=== PATIENT | female | born 1950 | race Caucasian/White ===

== ENCOUNTER 2018-09-15 12:26 | Emergency (ER) | payer OTHER, SELFPAY ==
[2018-09-15 12:38] VITALS: BP 155/86; PULSE 82; RESP 14; TEMP 36.7; O2SAT 98; BMI 28.9
--- NOTE | 2018-09-15 12:58 | DI.US.S_ITS ---
PROCEDURE: US PERIPH VENOUS LOW EXTREM LT INDICATIONS: LEFT CALF PAIN TECHNIQUE: Real-time imaging, as well as color and pulse Doppler interrogation, were performed of the lower extremity deep veins from the inguinal ligament to the popliteal fossa. COMPARISON: None. FINDINGS: The deep veins are normally compressible, and free of intraluminal thrombus. Color and pulse Doppler demonstrate normal phasic intraluminal flow. There is normal augmentation response to distal compression maneuver. IMPRESSION: No DVT in the left lower extremity. Dictated by: Christine Jacques M.D. on 09/15/2018 at 15:05 Approved by: Christine Jacques M.D. on 09/15/2018 at 15:06
[2018-09-15 14:13] VITALS: PULSE 70
--- NOTE | 2018-09-15 14:43 | ED.EXTPRO ---
HPI - Extremity Problem General Chief complaint: Extremity Problem,Nontraumatic Stated complaint: POSSIBLE BLOOD CLOT LEFT CALF Time Seen by Provider: 09/15/18 14:23 Source: patient Mode of arrival: ambulatory Limitations: no limitations History of Present Illness HPI Narrative: 67-year-old female here for evaluation of left posterior knee pain. She states it has been going on for the past several days/weeks. No trauma. States she gets cramping behind her knee and in her upper calf. No shortness of breath or chest pain. She was concerned about a blood clot. No skin changes. Related Data Allergies Allergy/AdvReac Type Severity Reaction Status Date / Time No Known Drug Allergies Allergy Verified 09/15/18 12:41 Review of Systems Constitutional Denies fever(s) Cardiovascular Denies chest pain and Denies dyspnea Respiratory Denies dyspnea Musculoskeletal Reports myalgias (Left upper calf), Denies deformity, Reports arthralgias (Left posterior knee), Denies joint swelling and Denies tingling Integumentary/Breasts Denies lesions and Denies rash Neurologic Denies focal weakness, Denies tingling and Denies paresthesias Hematologic/Lymphatic Denies easy bleeding and Denies easy bruising PFSH Medical History Healthy adult (Acute) Surgical History No pertinent past surgical history (Acute) Social History Smoking Status: Former smoker Exam Initial Vital Signs Initial Vital Signs: Vital Signs Temperature 98.1 F 09/15/18 12:38 Pulse Rate 82 09/15/18 12:38 Respiratory Rate 14 09/15/18 12:38 Blood Pressure 155/86 H 09/15/18 12:38 Pulse Oximetry 98 09/15/18 12:38 Const General: cooperative, healthy appearing, comfortable, well developed, well groomed and No acute distress Orientation: awake and oriented x3 Resp Effort & Inspection: normal respiratory effort Skin Lesions: no lesions Rashes: no rashes Neuro Sensory Exam: no sensory deficits noted Extrem Left lower extremity: normal to inspection, full ROM and knee Details: normal to inspection and normal ROM; no tenderness, no swelling and no unusual warmth; no cyanosis, no edema and joint enlargement noted Psych Appearance: grossly normal and well kempt Course Orders Ordered: ED Orders 09/15/18 12:58 US periph venous low extrem lt Stat Vital Signs - 8 hr 09/15/18 12:38 09/15/18 14:13 Temperature 98.1 F Pulse Rate 82 Pulse Rate [Left Dorsalis Pedis] 70 Respiratory Rate 14 Blood Pressure 155/86 H Pulse Oximetry 98 MDM - Extremity (Nontraumatic) Imaging Data Venous US: Radiologist's impression: PROCEDURE: US PERIPH VENOUS LOW EXTREM LT INDICATIONS: LEFT CALF PAIN TECHNIQUE: Real-time imaging, as well as color and pulse Doppler interrogation, were performed of the lower extremity deep veins from the inguinal ligament to the popliteal fossa. COMPARISON: None. FINDINGS: The deep veins are normally compressible, and free of intraluminal thrombus. Color and pulse Doppler demonstrate normal phasic intraluminal flow. There is normal augmentation response to distal compression maneuver. IMPRESSION: No DVT in the left lower extremity. Dictated by: Christine Jacques M.D. on 09/15/2018 at 15:05 Approved by: Christine Jacques M.D. on 09/15/2018 at 15:[address] [facility] Narrative Medical decision making narrative: No DVT noted on the lower extremity ultrasound. She is neurovascularly intact. No trauma. Will hold on x-rays. Doubt fracture. Discussed elevation and icing and anti-inflammatories. Informed her she did contact her primary care doctor for follow-up. She was given return precautions. She expressed understanding and agreement plan. Discharge Plan Departure Patient Disposition: Home Clinical Impression: Left knee pain Discharge Date/Time: 09/15/18 15:17 Interventions: ED Discharge Assessment Last Done: 09/15/18 15:16 Instructions: How To Perform RICE (Rest, Ice, Compress, Elevate) Activity Restrictions/Additional Instructions: recommend that you keep your knee elevated as much as possible you can do anti-inflammatories such as Motrin / Naprosyn. You can use compression stockings if you wish. Return to the emergency department for any new or worsening symptoms
== END 2018-09-15 15:17 | disposition home or self-care (01) ==
PROVIDERS: Emergency Provider Emergency Medicine; PCP Family Medicine
DX: M25.562 Pain in left knee (principal)
CPT/HCPCS: 93971; 99282; 99283

== ENCOUNTER → 2019-08-11 13:01 | Outpatient (CLI) | payer OTHER, SELFPAY ==
--- NOTE | 2019-08-11 | DI.US.S_ITS ---
PROCEDURE: US ABDOMEN COMPLETE INDICATIONS: RUQ PAIN TECHNIQUE: Real-time scanning was performed of the abdominal and retroperitoneal organs, with image documentation. COMPARISON: None. FINDINGS: Liver: Liver is normal in size and homogeneous in echotexture. Gallbladder: There are a few tiny echogenic foci within the gallbladder neck without visible vascularity. Biliary ducts: Intrahepatic bile ducts are non-dilated. Extrahepatic bile duct caliber measures 8 mm. No visible choledocholithiasis. Normal is 67 mm or less in diameter, or 10 mm or less post-cholecystectomy. Pancreas: Visualized portions of the pancreas are sonographically normal. Spleen: Spleen is normal in size and homogeneous in echotexture with a few scattered calcified splenic granulomas. Kidneys: Kidneys are normal in size and echotexture. Right kidney measures 8.9 cm long; left kidney measures 9.0 cm long. Mild renal cortical thinning on the right with renal cortex measuring 0.8 cm in thickness. No hydronephrosis or nephrolithiasis. No solid masses. Aorta: Visualized aorta is normal in caliber at less than 3 cm. Iliacs: Proximal common iliac arteries are normal in caliber at less than 2.5 cm. IVC: Intrahepatic inferior vena cava is patent. Miscellaneous: No free abdominal fluid. IMPRESSION: 1. A few tiny echogenic foci within the gallbladder neck without visible vascularity. Findings may represent small nonmobile gallstones versus small polyps. No wall thickening or pericholecystic fluid. There is minimal biliary ductal prominence without evidence for choledocholithiasis. Consider correlation with liver function tests for possible obstruction. If abnormal, further evaluation with MRCP, ERCP or endoscopic ultrasound can be considered at that time. 2. Mild right renal cortical thinning possibly related to sequela of chronic medical renal disease. Dictated by: Fredrick Mars M.D. on 08/11/2019 at 17:19 Approved by: Fredrick Mars M.D. on 08/11/2019 at 17:29
== END ==
PROVIDERS: PCP Family Medicine; Visit Provider Family Medicine
DX: R10.11 Right upper quadrant pain (principal)
CPT/HCPCS: 76700

== ENCOUNTER → 2021-05-02 08:45 | Outpatient (CLI) | payer MEDICARE, SELFPAY ==
[2021-05-02 19:13] LABS: Add Manual Diff / Slide Review NO; Basophils Absolute Auto 0 /uL (0-100); Basophils Percent Auto 0.7 % (0-2); Eosinophils Absolute Auto 100 /uL (0-450); Eosinophils Percent Auto 1.3 % (2-4); Hematocrit 43.3 % (36-46); Hemoglobin 14.1 g/dL (12.0-16.0); Lymphocytes Absolute Auto 2400 /uL (1100-4500); Lymphocytes Percent Auto 45.9 % (25-40); Mean Corpuscular HGB Conc 32.5 % (30-36); Mean Corpuscular Hemoglobin 30.3 PG (26-34); Mean Corpuscular Volume 93.2 fL (80-100); Monocytes Absolute Auto 400 /uL (0-900); Monocytes Percent Auto 6.8 % (3-14); Neutrophils Absolute Auto 2300 /uL (1500-7000); Neutrophils Percent Auto 45.3 % (50-75); Platelet Count 283 X10^3/uL (150-400); Red Blood Cell Count 4.65 X10^6/uL (4.0-5.2); Red Cell Distribution Width 13.9 % (11.6-14.8); White Blood Cell Count 5.2 X10^3/uL (4.5-11.0)
[2021-05-02 19:16] LABS: Alanine Aminotransferase 25 IU/L (<35); Albumin 3.9 g/dL (3.5-5.0); Albumin Globulin Ratio 1.3 (1.0-2.8); Alkaline Phosphatase 131 U/L (38-126); Aspartate Aminotransferase 31 IU/L (14-36); BUN Creatinine Ratio 26.3 (6-22); Bilirubin Total 0.6 mg/dL (0.2-1.3); Blood Urea Nitrogen 20 mg/dL (7-17); Calcium 9.4 mg/dL (8.4-10.2); Carbon Dioxide 30 mmol/L (22-32); Chloride 102 mmol/L (98-107); Cholesterol 231 mg/dL (140-199); Estimated Glomerular Filt Rate > 60.0 mL/min (>60); Globulin 2.9 g/dL (1.7-4.1); Glucose 92 mg/dL (80-110); HDL Cholesterol 103 mg/dL (40-60); HEMOLYSIS 15 (0-50); LDL Cholesterol Calculated 118 mg/dL (<100); Potassium 4.7 mmol/L (3.4-5.1); Sodium 139 mmol/L (137-145); Total Protein 6.8 g/dL (6.3-8.2); Triglycerides 48 mg/dL (35-150)
== END ==
PROVIDERS: PCP Family Medicine; Visit Provider Family Medicine
DX: E78.5 Hyperlipidemia, unspecified (principal); R07.9 Chest pain, unspecified; R42 Dizziness and giddiness
CPT/HCPCS: 80053; 80061; 85025

== ENCOUNTER → 2021-08-28 07:31 | Outpatient (CLI) | payer MEDICARE, SELFPAY ==
[2021-08-28 20:06] LABS: COVID19 - ORCAS (NP or Nasal) Negative (Negative)
== END ==
PROVIDERS: PCP Family Medicine; Visit Provider Physician Assistant
DX: Z20.822 Contact with and (suspected) exposure to COVID-19 (principal)
CPT/HCPCS: C9803; U0003

== ENCOUNTER → 2022-01-03 11:34 | Outpatient (CLI) | payer MEDICARE, SELFPAY ==
[2022-01-03 18:50] LABS: C-Reactive Protein Quant 0.9 mg/dL (<1.0)
[2022-01-03 19:39] LABS: Erythrocyte Sedimentation Rate 9 MM/HR (0-20)
[2022-01-04 15:42] LABS: Fecal Immunochemical Test Negative (Negative)
== END ==
PROVIDERS: PCP Family Medicine; Visit Provider Family Medicine
DX: Z12.11 Encounter for screening for malignant neoplasm of colon (principal); G89.29 Other chronic pain; M25.561 Pain in right knee
CPT/HCPCS: 82274; 85651; 86140

== ENCOUNTER 2023-03-20 11:19 | Day surgery (SDC) | payer MEDICARE, SELFPAY ==
--- NOTE | 2023-03-20 | PATH_ITS ---
[facility] Accession Number: [id number] No. of containers..01 Tissue . 01 Material submitted: . rectum - RECTAL POLYP . 01 Diagnosis: Rectum, Polyp, Biopsy: Tubular adenoma. Hyperplastic polyp. [facility] 03/25/2023 1604 Local . 01 Electronically signed: . Mariah Gan MD, Pathologist NPI- [id number] . 01 Gross description: . RECTAL POLYP: Received in formalin are 2 fragment(s) of torres, soft tissue measuring 0.5 x 0.5 x 0.4 cm to 0.4 x 0.3 x 0.2 cm submitted entirely in 1 cassette(s) /TR 03/21/2023 1552 Local . 01 Pathologist provided ICD-10: D12.8 . 01 CPT . 236883 Specimen Comment: A courtesy copy of this report has been sent to [phone] Performed at: 01 [facility] [address] [place] [address], [place], [place] [id number] MD Nik Arita MD Phone: [phone]
[2023-03-20 11:41] VITALS: BP 157/81; PULSE 76; RESP 17; TEMP 36.4; O2SAT 99; BMI 27.4
[2023-03-20] MEDS: LACTATED RINGERS 1,000 ML 120 ML IV (12:06)
--- NOTE | 2023-03-20 13:14 | PM.HP.1 ---
History of Present Illness History of Present Illness Date Patient Seen: 03/20/23 Time Patient Seen: 13:14 Chief complaint: Colonoscopy Narrative: Lindsay is a 72-year-old woman who is here for colonoscopy. She has never had 1 before. She has had other forms colon cancer screening before. She has 2 sisters who have had advanced polyps removed recently. [facility] Medical History (Updated 03/20/23 @ 13:16 by Alden Bucio MD) Cervical dysplasia Deviated septum H/O seborrheic keratosis Healthy adult History of skin cancer UTI (urinary tract infection) Surgical History (Updated 09/15/18 @ 19:38 by Dick Lassiter DO) No pertinent past surgical history Social History household members: none Smoking Status: Former smoker alcohol intake: current Meds Home Medications and Allergies Home Medications Medication Instructions Recorded Confirmed Type ascorbic acid (vitamin C) 250 mg 250 mg PO DAILY 03/20/23 03/20/23 History tablet (Vitamin C) cholecalciferol (vitamin D3) 50 50 mcg PO DAILY 03/20/23 03/20/23 History mcg (2,000 unit) capsule (Vitamin D3) tumeric 100 mg-mian 150 mg-olive cap PO 03/20/23 History 50 mg-oreg 150 mg-caprylate capsule Allergies Allergy/AdvReac Type Severity Reaction Status Date / Time No Known Drug Allergies Allergy Verified 03/20/23 11:40 Exam Vital Signs (past 8 hours): - 03/20/23 11:41 Temperature 97.6 F Pulse Rate 76 Respiratory Rate 17 Blood Pressure 157/81 H Pulse Oximetry 99 Oxygen Delivery Method Room Air Oxygen Delivery Method Room Air Const General: healthy appearing Assessment & Plan Assessment and plan (1) Colon cancer screening: Problem details: Reviewed risks and benefits colonoscopy and she would like to proceed Status: Acute Plan We reviewed the risks and benefits of colonoscopy for colon cancer screening and she would like to proceed.
--- NOTE | 2023-03-20 13:42 | P.OP.COLON_ITS ---
Operative Date/Time/Diagnoses Date of procedure: 03/20/23 Time of procedure: 13:42 Pre-op diagnosis: Colon cancer screening Post-op diagnosis: same Procedure & Clinicians Study performed: Colonoscopy Same procedure as scheduled: Yes Surgeon: Alden Bucio Procedure Notes Procedure in detail: Surgeon: Alden Bucio MD Anesthesia: Moni Chappell DIRECTOR OF PUPIL PERSONNEL PROGRAM Procedure: The patient was brought to the endoscopy suite, placed in left lateral decubitus position. The patient was connected to monitoring devices. A time-out was performed. Sedation was administered. Once the patient was adequately sedated, a digital rectal exam was performed and was normal. The scope was then inserted and advanced to the cecum where the appendiceal orifice was identified and photographed. The scope was then slowly withdrawn over greater than 6 minutes. The mucosa was thoroughly inspected. There were 2 po lyps in the rectum. One was about 1 cm and one was about 6 mm. Both were removed with cold snare. The scope was retroflexed in the rectum. No other abnormalities were seen. The scope was straightened and removed. The patient was awakened and brought to recovery. Scope withdrawal time: 14 minutes Sedation time: 19 minutes EBL: 2 mL Findings: 2 rectal polyps, one was 1 cm and 1 was 6 mm Post-procedure Disposition: PACU
[2023-03-20 13:43] VITALS: BP 111/68; PULSE 71; RESP 20; TEMP 37; O2SAT 98
[2023-03-20 13:53] VITALS: BP 107/71; PULSE 64; RESP 19; TEMP 36.9; O2SAT 98
[2023-03-20 14:01] VITALS: BP 131/75; PULSE 88; RESP 14; TEMP 36.9; O2SAT 96
[2023-03-20 14:05] VITALS: BP 157/81; PULSE 76; RESP 17; O2SAT 99
== END 2023-03-20 14:13 | disposition home or self-care (01) ==
PROVIDERS: PCP Physician Assistant; Referring Provider Surgery; Visit Provider Surgery
PROC: 0DJD8ZZ Inspection of Lower Intestinal Tract, Via Natural or Artificial Opening Endoscopic (ICD-10-PCS; CPT 45378; principal; 2023-03-20 12:15)
DX: Z12.11 Encounter for screening for malignant neoplasm of colon (principal); D12.8 Benign neoplasm of rectum
CPT/HCPCS: 45385; J2704

== ENCOUNTER → 2024-06-24 08:42 | Outpatient (CLI) | payer MEDICARE, SELFPAY ==
--- NOTE | 2024-06-24 08:44 | DI.US.S_ITS ---
PROCEDURE: US ABDOMEN LIMITED INDICATIONS: RUQ PAIN TECHNIQUE: Real-time scanning was performed of the abdominal and retroperitoneal organs, with image documentation. COMPARISON: [facility], US, US ABDOMEN COMPLETE, 08/11/2019, 13:34. FINDINGS: Liver: Liver is normal in size and mildly increased in echogenicity. Gallbladder: No gallstones. No wall thickening. No pericholecystic edema. Negative sonographic Aldana's sign. Biliary ducts: Intrahepatic bile ducts are non-dilated. Extrahepatic bile duct caliber measures 6.9 mm. Normal is 6-7 mm or less in diameter, or 10 mm or less post-cholecystectomy. Pancreas: Visualized portions of the pancreas are sonographically normal. Miscellaneous: No free abdominal fluid. IMPRESSION: 1. No cause for patient's symptoms. Normal appearance of the gallbladder. 2. Previously described small gallstones versus polyps are not visualized on today's exam. 3. Liver is mildly increased in echogenicity, most consistent with hepatic steatosis. Dictated by: Tucker Rios M.D. on 06/24/2024 at 10:51 Approved by: Tucker Rios M.D. on 06/24/2024 at 10:53
== END ==
PROVIDERS: PCP Family Medicine; Referring Provider Family Medicine; Visit Provider Family Medicine
DX: R10.11 Right upper quadrant pain (principal)
CPT/HCPCS: 76705